=== PATIENT | female | born 1995 | race African-American/Black ===

== ENCOUNTER 2018-05-24 02:58 | Inpatient (IN) ==
--- NOTE | 2018-05-24 03:56 | ED ---
HPI General Chief Complaint: Psychiatric Symptoms Stated Complaint: psych screen/trans from [facility] Time Seen by Provider: 05/24/18 03:53 Source: patient Mode of arrival: ambulatory Limitations: no limitations History of Present Illness HPI Narrative: This is a 22-year-old black female who presents emergency department as a transfer from [facility] under a Canas act by the ER physician. The patient had been brought to the hospital as a drug overdose. She was found at home to have overdose on hydrocodone. The patient allegedly had gotten Narcan with improvement of her mentation. She had medical clearance then was released and transferred here to [place]. Patient states that she has been suffering from depression. She has had social issues at home with upcoming probation and her brother had just been sentenced to [facility]. She states that she feels overwhelmed. She does drink alcohol on occasion. She does not smoke. She denies any other drugs. She denies any medical complaints at this time. Related Data Home Medications Medication Instructions Recorded Confirmed No Known Home Medications 05/24/18 05/24/18 Allergies Allergy/AdvReac Type Severity Reaction Status Date / Time No Known Allergies Allergy Uncoded 04/25/16 18:52 Review of Systems ROS: all other systems reviewed are negative [facility] Medical History Medical History Patient denies medical problems (Acute) Social History Social History Substance History: No History of Abuse Second Hand Smoke Exposure: No Smoking Status: Never smoker How Often Do You Have a Drink Containing Alcohol: Monthly or less Recent Travel in [facility] within the Last 8 Weeks: No Recent Out of Country Travel within the Last 8 Weeks: No Immunization History Tetanus Immunization: <5 Years Exam Narrative Exam Narrative: GENERAL: Well-nourished, well-developed patient. SKIN: Warm and dry. HEAD: Normocephalic and atraumatic. EYES: No scleral icterus. No injection or drainage. ENT: No nasal drainage noted. Mucous membranes pink. Airway patent. NECK: Supple, trachea midline. Moves head freely without obvious discomfort. CARDIOVASCULAR: Regular rate and rhythm without murmurs, gallops, or rubs. RESPIRATORY: Breath sounds equal bilaterally. No accessory muscle use. GASTROINTESTINAL: Abdomen soft, non-tender, nondistended. EXTREMITIES: No cyanosis or edema. BACK: Nontender without obvious deformity. No CVA tenderness. NEURO: Patient is alert and oriented. no sensorimotor deficits. Nonfocal. Normal speech. PSYCH: No delusions. No auditory or visual hallucinations. Course Initial Documented Vital Signs Temperature 98.5 F 05/24/18 03:25 Pulse Rate 62 05/24/18 03:25 Respiratory Rate 18 05/24/18 03:25 Blood Pressure 119/61 05/24/18 03:25 Pulse Oximetry 100 05/24/18 03:25 Last Documented Vital Signs Temperature 98.5 F 05/24/18 03:25 Pulse Rate 62 05/24/18 03:25 Respiratory Rate 18 05/24/18 03:25 Blood Pressure 119/61 05/24/18 03:25 Pulse Oximetry 100 05/24/18 03:25 Medical Decision Making MDM Narrative Medical decision making narrative: I have reviewed the medical record as well as the laboratory testing from [facility] for this patient. I agree the patient is medically cleared. The patient will be seen by the psychiatrist in the morning. Medical Screen Exam Complete: Yes Emergency Medical Condition: Yes Discharge Plan Discharge Disposition Patient Disposition: 30 Still Patient Discharge Condition Condition: Stable Physicians Team ED Provider: Troy Crespo ED Midlevel Provider: Yvan Domingo Primary Care Provider: Primary Care Mar De Los Santos Rxs /Orders / Referrals /Forms Prescriptions: No Action No Known Home Medications RF: 0 Status ED Status: Medically Cleared
[2018-05-24] MEDS ORDERED: Aluminum/Magnesium/Simethacone Susp 30 ML UDC PO PRN (08:59)
[2018-05-24] MEDS ORDERED: Bisacodyl 10 MG Supp RECTAL PRN (08:59)
[2018-05-24] MEDS ORDERED: Haloperidol Inj 5 MG/ML Ampul IV.PUSH PRN (08:59)
[2018-05-24] MEDS ORDERED: LORazepam 1 MG Tablet PO PRN (08:59)
--- NOTE | 2018-05-24 11:20 | P.HPPSY ---
Provisional Diagnosis Admission Date: May 24, 2018 10:00 [place] I.: Adjustment disorder with depressed mood, r/o major depressive disorder, alcohol use disorder Competence Certification of Person's Competence To Provide Express and Informed Consent I have personally examined Alyx Louis, a person being served at [facility] on, May 24, 2018 1111. Express and informed consent means consent voluntarily given in writing, by a competent person, after sufficient explanation and disclosure of the subject matter involved to enable the person to make a knowing and willful decision without any element of force, fraud, deceit, duress, or other form of constraint or coercion. This person is 18 years of age or older, is not now known to be incompetent to consent to treatment with a guardian advocate, and does not have a health care surrogate or proxy currently making medical treatment decisions. I have found this person to be one of the following: [] Competent to provide express and informed consent, as defined above, for voluntary admission to this facility and is competent to provide express and informed consent for treatment. He/she has the consistent capacity to make well reasoned, willful, and knowing decisions concerning his or her medical or mental health treatment. The person fully and consistently understands the purpose of the admission for examination/placement and is fully capable of personally exercising all rights assured under [place] Incompetent to provide express and informed consent to voluntary admission, and this is incompetent to provide express and informed consent to treatment. The person must be transferred to involuntary status and a petition for a guardian advocate filed with the Circuit Court. [x] Refusing to provide express and informed consent to voluntary admission but is competent to provide express and informed consent for treatment. The person must be discharged or transferred to involuntary status. Form shall be completed within 24 hours of a person's arrival at the receiving facility and filed in the clinical record of each person: 1. Admitted on a voluntary basis 2. Permitted to provide express and informed consent to his/her own treatment 3. Allowed to transfer from involuntary to voluntary status 4. Prior to permitting a person to consent to his or her own treatment after having been previously found incompetent to consent to treatment. History of Present Illness Capacity: Has capacity History of Present Illness: The patient is a 22-year-old -[place]is[place] woman, domiciled in [place] with her mother, single, no kids, employed, with psychiatric history of alcohol use disorder, no previous psychiatric hospitalizations, no previous suicide attempts, no significant medical problems who presents emergency department as a transfer from [facility] under a Canas act by the ER physician. The patient had been brought to the hospital as intentional a drug overdose with suicidal ideation. She was found at home to have overdose on hydrocodone. The patient allegedly had gotten Narcan with improvement of her mentation. She had medical clearance then was released and transferred here to [place]. Patient states that she has been suffering from depression for several weeks now. She has had social issues at home with upcoming probation and her brother had just been sentenced to [facility]. On the psychiatric evaluation the patient is calm, cooperative, objectively depressed. She says that she has been very overwhelmed and frustrated, she says that her brother was just incarcerated a week ago. She is also facing a potential incarceration due to a hit and run. She has been incarcerated in the past due to Battery. The patient reports that in the last weeks she has been unable to sleep, she has been having persistent intrusive thoughts, has been feeling hopeless, helpless, worthless, and increasingly guilty, with frequent crying spell and having thoughts of committing suicide by overdosing. The patient also reports increased alcohol use. She is logical, coherent and relevant, no agitation, no aggressive behavior reported. No paranoia, no delusions present. 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 This includes certification that hospital inpatient services are reasonable and necessary and in the case of services not specified as inpatient-only under 42 CFR 419.22(n), that they are appropriately provided as inpatient services in accordance to with the 2-midnight benchmark under 43 CFR 412.3(e) I certify that inpatient psychiatric hospital services are medically necessary. Evaluation and treatment and/or diagnostic testing are expected to improve the patient's condition. The patient needs on a daily basis, active treatment furnished directly by or requiring the supervision of inpatient psychiatric facility personnel. Estimated Total Length of Stay (Days): 7 Plans for Post Hospital Care: Home Review of Systems All other systems reviewed negative except as stated in HPI Psychiatric: Reports depression, Reports difficulty concentrating, Reports mood swings, Reports thoughts of hurting/killing yourself [facility] - History History Provided By: Patient, Medical Record - Medical History Medical History: Medical History (Last Reviewed 05/24/18 @ 03:55 by FAUSTO Rivera) Patient denies medical problems - Tobacco History Second Hand Smoke Exposure: No Tobacco Use In Past 30 Days: No Smoking Status: Never smoker - Alcohol History How Often Do You Have a Drink Containing Alcohol: Monthly or less - Substance Use History Substance History: No History of Abuse - Travel History Recent Travel in the [place] Within the Last 8 Weeks: No Recent Travel Out of the Country Within the Last 8 Weeks: No - Immunization History Tetanus Immunization: <5 Years Medications and Allergies Active Medications: Active Medications Al Hydrox/Mg Hydrox/Simethicone (Mag-Al Plus Susp Liq) 30 ml PO Q6H PRN PRN Reason: DYSPEPSIA Al Hydroxide/Mg Hydroxide (Milk Of Magnesia Liq) 30 ml PO Q12H PRN PRN Reason: Mild Constipation Bisacodyl (Dulcolax Supp) 10 mg RECTAL DAILY PRN PRN Reason: SEVERE CONSITIPATION Flumazenil (Romazecon Inj) 0.2 mg IV.PUSH Q1M PRN PRN Reason: OVERSEDATION Haloperidol Lactate (Haldol Inj) 1 mg IV.PUSH Q15M PRN PRN Reason: for severe agitation Lactulose (Lactulose Liq) 30 ml PO DAILY PRN PRN Reason: SEVERE CONSITIPATION Lorazepam (Ativan) 1 mg PO Q4H PRN PRN Reason: for CIWA 8-10 Lorazepam (Ativan) 2 mg PO Q2H PRN PRN Reason: for CIWA 11-14 Lorazepam (Ativan Inj) 2 mg IV.PUSH Q2H PRN PRN Reason: for CIWA 11-14 Lorazepam (Ativan Inj) 2 mg IV.PUSH Q1H PRN PRN Reason: for CIWA 15-20 Lorazepam (Ativan Inj) 2 mg IV.PUSH Q15M PRN PRN Reason: for CIWA > 20 Lorazepam (Ativan Inj) 1 mg IV.PUSH Q4H PRN PRN Reason: for CIWA 8-10 Senna/Docusate Sodium (Desi-Colace) 1 tab PO BID [facility] Sennosides (Senokot) 17.2 mg PO Q12H PRN PRN Reason: Moderate Constipation Sertraline HCl (Zoloft) 25 mg PO DAILY [facility] Allergies Allergy/AdvReac Type Severity Reaction Status Date / Time No Known Allergies Allergy Uncoded 04/25/16 18:52 Home Medications Medication Instructions Recorded Confirmed Type No Known Home Medications 05/24/18 05/24/18 History Exam Vital signs: Vital Signs 05/24/18 03:25 Temperature 98.5 F Pulse Rate 62 Respiratory Rate 18 Blood Pressure 119/61 Pulse Oximetry 100 Intake & Output 05/23/18 05/24/18 05/24/18 18:59 06:59 18:59 Weight 105 kg - Constitutional no acute distress - Routine HEENT Exam Head: Present: normocephalic, atraumatic Eye: Present: EOMI ENT: Present: mucous membranes moist Mental Status Examination Appearance: Appropriate Consciousness: Alert Orientation: x4 Motor Activity: Normal gait Speech: Unremarkable Language: Adequate Fund of Knowledge: Adequate Attention and Concentration: Adequate Memory: Unremarkable Mood: Sad Affect: Sad Thought Process & Associations: Intact Thought Content: Appropriate Hallucination Type: None Delusion Type: None Suicidal Ideation: Yes Suicidal Plan: No Suicidal Intention: No Homicidal Ideation: No Homicidal Plan: No Homicidal Intention: No Insight: Poor Judgment: Poor Assessment and Plan - Assessment (1) Acute adjustment disorder Code(s): F43.20 - Adjustment disorder, unspecified Status: Acute - Plan Plan: On my psychiatric evaluation today find a patient that is calm, cooperative, expressing symptoms of depression for the last month in the context of frustration, a very important legal processing which the patient is facing a potential incarceration, she is currently under probation. She also reports that her brother has been incarcerated recently. The patient reports that she has been feeling hopeless, increased difficulty sleeping, intrusive thoughts, increased anxiety, helpless, worthlessness, and suicidal ideation with a plan of overdosing. The patient has already overdose with several pieces of opiates with suicidal intentions. She also endorses increased alcohol use. At this moment the patient has an increased risk of danger to self and needs psychiatric admission for stabilization. The patient denies previous psychiatric illnesses, hospitalizations, suicide attempts. At this moment is unclear if the source of current presentation is related with adjustment due to the evident stress of her life, or secondary to major mood disorder, such as major depressive disorder per however a personality pathology and conscious simulation with a secondary gain of use in the hospital as a way to avoid legal responsibilities also need to be carefully ruled out. Patient will be transfer to [address] I will start Zoloft 25 mg daily for depression. WA protocol for potential alcohol Will consult psychiatry for second opinion. Support, motivational psych education provided. duralumin metalworker intervention for collateral information, to coordinate safe discharge, individual and group therapies. Justification for Continued Inpatient Stay: Continue process of admission
[2018-05-24] MEDS: Sertraline 50 MG Tablet PO SCH (13:12)
[2018-05-24] MEDS: Senna/Docusate Sodium 8.6/50 MG Tablet PO SCH ×2 (13:12→20:16)
--- NOTE | 2018-05-24 14:25 | P.CONPSY ---
Provisional Diagnosis Admission Date: May 24, 2018 10:00 [place] I.: Adjustment disorder with depressed mood, r/o major depressive disorder, alcohol use disorder History of Present Illness Service: Psychiatry Consult date: 05/24/18 Requesting Physician: Piotr Fletcher Reason for Consult: Second opinion petition supporting Canas act Primary Care Provider: No Primary Care Physician History of Present Illness: Patient is a 22-year-old female admitted to Dr. Griggs service on the Canas act his H&P reviewed and agreed with. Dr. Griggs is signed first opinion petition supporting Canas act. I agree with them. Thus I will cosign second opinion petition supporting Canas act. Patient seen by me in her room with nurse Mejia. Patient acknowledges increased stress in the community with her brother being in long term, with she being on probation, and having boyfriend problems. It appears she took pain pills that may or may not have been her own. She continues depressed and is vague about any suicidal ideation at this time. However she does meet criteria for further observation and assessment of the Canas act Review of Systems All other systems reviewed negative except as stated in HPI PMFSH - History History Provided By: Patient, Medical Record - Medical History Medical History: Medical History (Last Reviewed 05/24/18 @ 14:22 by Roel Isaacs MD) Patient denies medical problems - Social History I have reviewed the patient's Social History: Yes - Tobacco History Second Hand Smoke Exposure: No Tobacco Use In Past 30 Days: No Smoking Status: Never smoker - Alcohol History How Often Do You Have a Drink Containing Alcohol: Monthly or less - Substance Use History Substance History: No History of Abuse - Travel History Recent Travel in the [place] Within the Last 8 Weeks: No Recent Travel Out of the Country Within the Last 8 Weeks: No - Immunization History Tetanus Immunization: <5 Years Medications and Allergies Active Medications: Active Medications Al Hydrox/Mg Hydrox/Simethicone (Mag-Al Plus Susp Liq) 30 ml PO Q6H PRN PRN Reason: DYSPEPSIA Al Hydroxide/Mg Hydroxide (Milk Of Magnesia Liq) 30 ml PO Q12H PRN PRN Reason: Mild Constipation Bisacodyl (Dulcolax Supp) 10 mg RECTAL DAILY PRN PRN Reason: SEVERE CONSITIPATION Flumazenil (Romazecon Inj) 0.2 mg IV.PUSH Q1M PRN PRN Reason: OVERSEDATION Haloperidol Lactate (Haldol Inj) 1 mg IV.PUSH Q15M PRN PRN Reason: for severe agitation Lactulose (Lactulose Liq) 30 ml PO DAILY PRN PRN Reason: SEVERE CONSITIPATION Lorazepam (Ativan) 1 mg PO Q4H PRN PRN Reason: for CIWA 8-10 Lorazepam (Ativan) 2 mg PO Q2H PRN PRN Reason: for CIWA 11-14 Lorazepam (Ativan Inj) 2 mg IV.PUSH Q2H PRN PRN Reason: for CIWA 11-14 Lorazepam (Ativan Inj) 2 mg IV.PUSH Q1H PRN PRN Reason: for CIWA 15-20 Lorazepam (Ativan Inj) 2 mg IV.PUSH Q15M PRN PRN Reason: for CIWA > 20 Lorazepam (Ativan Inj) 1 mg IV.PUSH Q4H PRN PRN Reason: for CIWA 8-10 Miscellaneous (Pill Splitter) 1 each OTHER UNSCH [facility] Senna/Docusate Sodium (Desi-Colace) 1 tab PO BID [facility] Last Admin: 05/24/18 13:12 Dose: Not Given Sennosides (Senokot) 17.2 mg PO Q12H PRN PRN Reason: Moderate Constipation Sertraline HCl (Zoloft) 25 mg PO DAILY [facility] Last Admin: 05/24/18 13:12 Dose: 25 mg Sertraline HCl (Zoloft) 25 mg PO DAILY [facility] Allergies Allergy/AdvReac Type Severity Reaction Status Date / Time No Known Allergies Allergy Uncoded 04/25/16 18:52 Home Medications Medication Instructions Recorded Confirmed Type No Known Home Medications 05/24/18 05/24/18 History Exam Vital signs: Vital Signs 05/24/18 03:25 Temperature 98.5 F Pulse Rate 62 Respiratory Rate 18 Blood Pressure 119/61 Pulse Oximetry 100 Intake & Output 05/23/18 05/24/18 05/24/18 18:59 06:59 18:59 Weight 105 kg Narrative: Patient laying quietly in bed she is in no acute distress, patient no respiratory distress, no complaints of chest pain or abdominal pain. Patient moving all 4 extremities well lying in bed Mental Status Examination Appearance: Appropriate Consciousness: Alert Orientation: x4 Motor Activity: Normal gait Speech: Unremarkable Language: Adequate Fund of Knowledge: Adequate Attention and Concentration: Adequate Memory: Unremarkable Mood: Sad Affect: Other (Decreased range and intensity) Thought Process & Associations: Intact Thought Content: Appropriate Hallucination Type: None Delusion Type: None Suicidal Ideation: Yes Suicidal Plan: No Suicidal Intention: No Homicidal Ideation: No Homicidal Plan: No Homicidal Intention: No Insight: Poor Judgment: Poor Assessment and Plan - Assessment (1) Acute adjustment disorder Code(s): F43.20 - Adjustment disorder, unspecified Status: Acute - Plan Plan: At this time patient would speak her criteria with a stroke cosign second opinion supporting Floresita elizalde Justification for Continued Inpatient Stay: At this time patient with decompensated placed in a lower level of care Discharge Planning: To be determined probable return home with family
[2018-05-25 07:08] LABS: Anion Gap 10 meq/L (5-15); Blood Urea Nitrogen 8 mg/dL (7-18); Calcium 8.8 mg/dL (8.5-10.1); Carbon Dioxide 21.8 meq/L (21.0-32.0); Chloride 106 meq/L (98-107); Glomerular Filtration Rate Greater Than 89 mL/min (>89); Glucose,Random 59 mg/dL (74-106); Potassium 3.5 meq/L (3.5-5.1); Sodium 138 meq/L (136-145)
[2018-05-25 07:09] LABS: Cholesterol 155 mg/dL (120-200); Triglycerides 48 mg/dL (42-150)
[2018-05-25 07:12] LABS: Chol/HDL Ratio 2.27 Ratio; HDL Cholesterol 68.2 mg/dL (40.0-60.0); LDL Cholesterol,Calculated 77 mg/dL (0-99)
[2018-05-25] MEDS: Sertraline 50 MG Tablet PO SCH ×2 (08:59→09:00)
[2018-05-25] MEDS: Senna/Docusate Sodium 8.6/50 MG Tablet PO SCH ×2 (09:15→20:47)
--- NOTE | 2018-05-25 10:38 | P.PNPSY ---
Subjective Chief Complaint: F/U for suicide attempt by overdose Remarks: The patient was interviewed in the privacy of their room and accompanied by the assigned nurse. We reviewed the patient's mood, thoughts, and behaviors from overnight and this morning. Nursing reports that the patient has remained secluded to her room and focused on discharge. The patient did cooperate with the start of sertraline 25 mg a day for treatment of depressed mood. The patient was observed to be lying in bed after breakfast with the covers pulled up over her head. She was minimally cooperative with interview and when she was told that she would not be discharged today she shut down and would not answer any further questions. But before she sat down she did deny having any suicidal ideations towards that she had immediate regrets after taking the overdose and had told her mother which she did and asked for help. We attempted to discuss her pattern of inadequate coping as manifest by her recent legal charges for hit and run and now trying to escape the stress of her psychosocial issues by overdose and now not willing to face the consequences of her actions by secluding herself to her room and hiding under her bed sheets. The patient agreed to involve her mother in safety planning and discharge planning. The patient's mother's name is Mari and contact number is [phone]. Mari was contacted this morning and she expressed support for her daughter's inpatient stabilization. She acknowledges that her daughter tends to avoid stressors and has been a very shy child and tends to isolate and not share her emotions or conflicts with the family. The mother Mari did confirm that the patient has never had any previous psychiatric problems and no suicide attempts and that she did notify her mother immediately after her overdose. Review of Systems Constitutional: Reports daytime sleepiness, Denies body ache(s) Psychiatric: Reports anxiety, Reports depression, Denies seeing things others do not see, Denies sensing things others do not sense, Denies thoughts of hurting/killing others, Denies thoughts of hurting/killing yourself Mental Status Examination Appearance: Appropriate Consciousness: Alert Orientation: x4 Motor Activity: Normal gait Speech: Unremarkable Language: Adequate Fund of Knowledge: Adequate Attention and Concentration: Adequate Memory: Unremarkable Mood: Sad, Anxious Affect: Other (Decreased range and intensity) Thought Process & Associations: Intact Thought Content: Appropriate Hallucination Type: None Delusion Type: None Suicidal Ideation: No Suicidal Plan: No Suicidal Intention: No Homicidal Ideation: No Homicidal Plan: No Homicidal Intention: No Insight: Poor Judgment: Impulsive Assessment and Plan - Assessment (1) Acute adjustment disorder Code(s): F43.20 - Adjustment disorder, unspecified Status: Acute - Plan Plan: Initial assessment and plan: On my psychiatric evaluation today find a patient that is calm, cooperative, expressing symptoms of depression for the last month in the context of frustration, a very important legal processing which the patient is facing a potential incarceration, she is currently under probation. She also reports that her brother has been incarcerated recently. The patient reports that she has been feeling hopeless, increased difficulty sleeping, intrusive thoughts, increased anxiety, helpless, worthlessness, and suicidal ideation with a plan of overdosing. The patient has already overdose with several pieces of opiates with suicidal intentions. She also endorses increased alcohol use. At this moment the patient has an increased risk of danger to self and needs psychiatric admission for stabilization. The patient denies previous psychiatric illnesses, hospitalizations, suicide attempts. At this moment is unclear if the source of current presentation is related with adjustment due to the evident stress of her life, or secondary to major mood disorder, such as major depressive disorder per however a personality pathology and conscious simulation with a secondary gain of use in the hospital as a way to avoid legal responsibilities also need to be carefully ruled out. Patient will be transfer to [address] I will start Zoloft 25 mg daily for depression. [facility] protocol for potential alcohol Will consult psychiatry for second opinion. Support, motivational psych education provided. concrete worker intervention for collateral information, to coordinate safe discharge, individual and group therapies. 05/25/2018: Fair response to treatment, the patient is denying suicidal ideation but she remains secluded in her room with a depressed affect and complaining of anxiety about being in the hospital. Patient has not engaged fully in the inpatient treatment programming which is consistent with her history of avoiding uncomfortable stressors and situations. The patient's risks of further self-harm cannot be fully mitigated until she has had further observation and cooperation with the inpatient treatment team therefore her continued involuntary legal status is recommended. Plan: 1. Continue Zoloft 25 mg/day for treatment of depressed mood. 2. Continue to encourage patient to attend group therapies and interact within the milieu in an effort to process current stressors. 3. Anticipate involvement of her mother with discharge planning and safety planning. 4. Estimated length of stay 3-5 days. Justification for Continued Inpatient Stay: Patient remains an elevated risk for self-harm and will require further inpatient stabilization and preparation of a safe discharge plan. Moving patient to a less restrictive environment at this time may result in decompensation.
[2018-05-25 15:25] LABS: Hemoglobin A1c 5.1 % (4.3-6.0)
[2018-05-26] MEDS: Sertraline 50 MG Tablet PO SCH ×2 (08:28)
[2018-05-26] MEDS: Senna/Docusate Sodium 8.6/50 MG Tablet PO SCH ×2 (08:28→20:16)
[2018-05-26] MEDS ORDERED: Ibuprofen 600 MG Tablet PO PRN (15:03)
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
[2018-05-27 05:31] VITALS: BP 115/68; PULSE 62; RESP 16; TEMP 97.9; O2SAT 100
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
[2018-05-27] MEDS: Senna/Docusate Sodium 8.6/50 MG Tablet PO SCH (08:59)
[2018-05-27] MEDS ORDERED: Sertraline 50 MG Tablet PO SCH (09:00)
== END 2018-05-27 10:30 | disposition home or self-care (01) ==
LOC: NEPJ 02:58 → NEDA 10:00 → H260 11:00
PROVIDERS: ADMIT Psychiatry & Neurology Psychiatry; ATTEND Psychiatry & Neurology Psychiatry